=== PATIENT | female | born 1970 | race Caucasian/White ===

== ENCOUNTER 2022-02-19 16:40 | Emergency (ER) | payer SELFPAY ==
[~2022-02-19] VITALS: Ht 167.6 cm; Wt 49.0 kg
[2022-02-19 19:11] LABS: BASOPHILS % 0.9 % (0.0-2.0); EOSINOPHILS % 2.8 % (0.0-5.0); HEMOGLOBIN. 11.7 g/dL (12.0-16.0); MEAN CORPUSCULAR HEMOGLOBIN 28.8 pg (28.0-32.0); MEAN CORPUSCULAR VOLUME 86.6 fL (81.0-99.0); MEAN PLATELET VOLUME 8.2 fl (7.4-10.4); MONOCYTES % 7.9 % (2.0-8.0); NEUTROPHILS % 62.4 % (40.0-76.0); PLATELET 438 x1000/uL (130-400); RED BLOOD CELL COUNT 4.04 mill/uL (4.2-5.4); RED CELL DISTRIBUTION WIDTH 15.6 % (11.6-14.6)
[2022-02-19 19:19] LABS: CHLORIDE 109 mEq/L (98-107)
[2022-02-19 19:23] LABS: ETHANOL BLOOD < 10 mg/dL
[2022-02-19 19:26] LABS: HCG SCREEN NEGATIVE
[2022-02-20 12:00] VITALS: BP 92/55
[2022-02-20] MEDS ORDERED: RISPERIDONE 1MG TABLET PO SCH (12:20)
[2022-02-20] MEDS ORDERED: MAGNESIUM/ALUMINUM HYDROXIDE/SIMETHICONE 30ML UDC PO PRN (22:30)
[2022-02-20] MEDS ORDERED: CLONIDINE 0.1MG TABLET PO PRN (22:30)
[2022-02-20] MEDS ORDERED: ACETAMINOPHEN 325MG TABLET PO PRN ×2 (22:30)
[2022-02-20] MEDS ORDERED: POTASSIUM CHLORIDE 20MEQ TABLET SR PO NR (22:30)
[2022-02-20] MEDS ORDERED: GUAIFENESIN 200MG/10ML SUGAR FREE UDC PO PRN (22:30)
== END 2022-02-20 15:05 | disposition left against medical advice (07) ==
LOC: ER 16:58
DX: R45.6 Violent behavior (principal); Z20.822 Contact with and (suspected) exposure to COVID-19
CPT/HCPCS: 36415; 80048; 80307; 80320; 80329; 84703; 85025; 87426; 99285; G0480